=== PATIENT | male | born 1970 | race Caucasian/White ===

== ENCOUNTER → 2017-05-03 | Outpatient (CLI) | payer OTHER | LOC: EMI 11:15 → MRI 11:15 | DX: M54.16 Radiculopathy, lumbar region (principal); M48.06 Spinal stenosis, lumbar region; M51.27 Other intervertebral disc displacement, lumbosacral region; M48.07 Spinal stenosis, lumbosacral region | CPT/HCPCS: 72148 ==

== ENCOUNTER 2020-12-06 22:09 | Emergency (ER) | payer OTHER ==
[~2020-12-06 22:09] MED LIST: AMLODIPINE BES2.5 MG PO; AMLODIPINE BESY10 MG PO; AMLODIPINE BESYL5 MG PO; ASPIRIN EC81 MG PO; ASPIRIN81 MG PO; ATORVASTATIN CA20 MG PO; ATORVASTATIN CA40 MG PO; ATORVASTATIN CA80 MG PO; BACTROBAN CREAM15 GM TOP; BENTYL 20MG TAB20 MG PO; BRILINTA 90 MG90 MG PO; CLINORIL 150 M150 MG PO; FLEXERIL 10 MG10 MG PO; GABAPENTIN300 MG PO; GLUCOPHAGE 500500 MG PO; HUMALOG 10100 UNITS/ SC; HYDRALAZINE HCL50 MG PO; LANTUS100 UNIT/1 SQ; LISINOPRIL20 MG PO; LOPRESSOR 25 MG25 MG PO; NITROGLYCERIN0.4 MG SL; NORCO 7.5-3251 EACH PO; NOVOLOG MI100 UNIT/1 SC; OMNICEF 300 MG300 MG PO; Voltaren Gel 1 % TOP; ZESTRIL40 MG PO; ZOFRAN ODT 4 MG4 MG SL
[2020-12-06 22:30] LABS: HEMOGLOBIN 16.2 gm/dl (14.0-17.5); RED BLOOD COUNT 5.41 M/UL (4.20-5.50); WHITE BLOOD COUNT 9.9 K/UL (4.5-11.0)
== END 2020-12-07 05:19 | disposition home or self-care (01) ==
LOC: ER1 22:09
PROVIDERS: Emergency Medicine
DX: E86.0 Dehydration (principal); E11.65 Type 2 diabetes mellitus with hyperglycemia; N17.9 Acute kidney failure, unspecified; R42 Dizziness and giddiness; I10 Essential (primary) hypertension
CPT/HCPCS: 70450; 71045; 80048; 80053; 82009; 82550; 82553; 82962; 83605; 83615; 84484; 85025; 93005; 99285

== ENCOUNTER 2021-01-04 22:12 | Observation (INO) | payer OTHER ==
[~2021-01-04] VITALS: Ht 172.7 cm; Wt 83.9 kg
[2021-01-05 00:04] LABS: HEMOGLOBIN 12.7 gm/dl (14.0-17.5); RED BLOOD COUNT 4.28 M/UL (4.20-5.50); WHITE BLOOD COUNT 8.4 K/UL (4.5-11.0)
[2021-01-05 00:24] LABS: BUN/CREATININE RATIO 20 (0-10)
[2021-01-07] MEDS ORDERED: LOPRESSOR 25 MG25 MG PO (12:07)
== END 2021-01-07 14:06 | disposition home or self-care (01) ==
LOC: ER1 22:12 → MED SURG 4 01-05 01:24 → CDU 01-05 01:24 → MED SURG 4 01-05 03:00
PROVIDERS: Physician Assistant; ADMIT Internal Medicine
DX: R07.89 Other chest pain (principal); I25.10 Atherosclerotic heart disease of native coronary artery without angina pectoris; I10 Essential (primary) hypertension; E11.9 Type 2 diabetes mellitus without complications; Z98.61 Coronary angioplasty status; Z86.73 Personal history of transient ischemic attack (TIA), and cerebral infarction without residual deficits; Z82.49 Family history of ischemic heart disease and other diseases of the circulatory system; Z72.0 Tobacco use; Z79.4 Long term (current) use of insulin; Z79.82 Long term (current) use of aspirin; Z79.899 Other long term (current) drug therapy; Z20.822 Contact with and (suspected) exposure to COVID-19
CPT/HCPCS: 36415; 71045; 80053; 82550; 82553; 82962; 83874; 83880; 84484; 85025; 85379; 85610; 85730; 93005; 96374; 96375; 96376; 99152; 99153; 99285; C1760; C1769; G0378; J1644; J1885; J2250; J2270; J2405; J3010; J7040; Q9967; U0002

== ENCOUNTER 2021-02-15 18:02 | Observation (INO) | payer OTHER ==
[~2021-02-15] VITALS: Ht 167.6 cm; Wt 78.9 kg
[2021-02-15 18:59] LABS: HEMOGLOBIN 14.3 gm/dl (14.0-17.5); RED BLOOD COUNT 4.79 M/UL (4.20-5.50); WHITE BLOOD COUNT 9.4 K/UL (4.5-11.0)
[2021-02-15 19:05] LABS: BUN/CREATININE RATIO 13 (0-10)
[2021-02-16 05:35] LABS: HEMOGLOBIN 13.1 gm/dl (14.0-17.5); RED BLOOD COUNT 4.4 M/UL (4.20-5.50); WHITE BLOOD COUNT 7.1 K/UL (4.5-11.0)
[2021-02-16 05:51] LABS: BUN/CREATININE RATIO 15 (0-10)
[2021-02-16] MEDS ORDERED: METFORMIN HCL1000 MG PO (12:03)
[2021-02-16] MEDS ORDERED: ZESTRIL/PRINIVI10 MG MT (12:05)
[2021-02-16] MEDS ORDERED: FAMOTIDINE40 MG PO (12:08)
[2021-02-16] MEDS ORDERED: DIFLUCAN200 MG PO (12:09)
[2021-02-16] MEDS ORDERED: JANUVIA 100 MG100 MG PO (12:11)
== END 2021-02-16 17:00 | disposition home or self-care (01) ==
LOC: ER1 18:02 → CDU 19:28 → CCU 19:28
PROVIDERS: Emergency Medicine; ADMIT Internal Medicine
DX: G92 Toxic encephalopathy (principal); T40.2X5A Adverse effect of other opioids, initial encounter; F11.10 Opioid abuse, uncomplicated; I25.10 Atherosclerotic heart disease of native coronary artery without angina pectoris; E11.9 Type 2 diabetes mellitus without complications; I10 Essential (primary) hypertension; Z95.5 Presence of coronary angioplasty implant and graft; Z86.73 Personal history of transient ischemic attack (TIA), and cerebral infarction without residual deficits; Z20.822 Contact with and (suspected) exposure to COVID-19
CPT/HCPCS: 36415; 71045; 80048; 80053; 80307; 81001; 82550; 82553; 83605; 83735; 83874; 84484; 85025; 93005; 96374; 99285; G0378; J2310; J7030; U0002

== ENCOUNTER 2021-09-24 16:57 | Emergency (ER) | payer OTHER ==
[~2021-09-24 16:57] MED LIST changes: +DIFLUCAN200 MG PO; +FAMOTIDINE40 MG PO; +JANUVIA 100 MG100 MG PO; +METFORMIN HCL1000 MG PO; +ZESTRIL/PRINIVI10 MG MT
[2021-09-24] MEDS ORDERED: NORFLEX 100 MG100 MG PO (20:11)
[2021-09-24] MEDS ORDERED: LODINE CAP 300300 MG PO (20:11)
== END 2021-09-24 20:38 | disposition home or self-care (01) ==
LOC: ER1 16:57
DX: S20.211A Contusion of right front wall of thorax, initial encounter (principal); E78.5 Hyperlipidemia, unspecified; E11.9 Type 2 diabetes mellitus without complications; I11.9 Hypertensive heart disease without heart failure; Z86.73 Personal history of transient ischemic attack (TIA), and cerebral infarction without residual deficits; W01.10XA Fall on same level from slipping, tripping and stumbling with subsequent striking against unspecified object, initial encounter
CPT/HCPCS: 71111; 99283

== ENCOUNTER 2021-10-17 21:21 | Observation (INO) | payer OTHER ==
[~2021-10-17] VITALS: Ht 172.7 cm; Wt 81.6 kg
[~2021-10-17 21:21] MED LIST changes: +LODINE CAP 300300 MG PO; +NORFLEX 100 MG100 MG PO
[2021-10-17 22:15] LABS: HEMOGLOBIN 14.3 gm/dl (14.0-17.5); RED BLOOD COUNT 4.73 M/UL (4.20-5.50); WHITE BLOOD COUNT 8.7 K/UL (4.5-11.0)
[2021-10-17 22:17] LABS: BUN/CREATININE RATIO 11 (0-10)
[2021-10-18] MEDS ORDERED: DICLOFENAC SODI75 MG PO (14:00)
[2021-10-18] MEDS ORDERED: ASPIRIN EC81 MG PO (14:01)
[2021-10-18] MEDS ORDERED: AMLODIPINE BESY10 MG PO (14:01)
[2021-10-18] MEDS ORDERED: GABAPENTIN300 MG PO (14:01)
[2021-10-18] MEDS ORDERED: LISINOPRIL10 MG PO (14:02)
[2021-10-18] MEDS ORDERED: METOPROLOL TART25 MG PO (14:02)
[2021-10-18] MEDS ORDERED: FARXIGA5 MG PO (14:02)
[2021-10-18] MEDS ORDERED: JANUVIA100 MG PO (14:04)
[2021-10-18] MEDS ORDERED: VIAGRA100 MG PO (14:04)
[2021-10-18] MEDS ORDERED: ATORVASTATIN CA20 MG PO (14:05)
[2021-10-18] MEDS ORDERED: HYDROCODON-ACE1 EAC2 PO (14:05)
[2021-10-18] MEDS ORDERED: ADMELOG SO100 UNIT/1 SQ (14:06)
[2021-10-18] MEDS ORDERED: FAMOTIDINE40 MG PO (14:06)
[2021-10-19 06:56] LABS: BUN/CREATININE RATIO 13 (0-10)
== END 2021-10-19 13:30 | disposition home or self-care (01) ==
LOC: ER1 21:21 → CDU 22:52 → MED SURG 4 10-18 14:59
PROVIDERS: Family Medicine; Internal Medicine; ADMIT Internal Medicine
DX: R07.89 Other chest pain (principal); I25.10 Atherosclerotic heart disease of native coronary artery without angina pectoris; G89.29 Other chronic pain; M54.9 Dorsalgia, unspecified; I12.9 Hypertensive chronic kidney disease with stage 1 through stage 4 chronic kidney disease, or unspecified chronic kidney disease; E11.22 Type 2 diabetes mellitus with diabetic chronic kidney disease; N18.9 Chronic kidney disease, unspecified; E11.65 Type 2 diabetes mellitus with hyperglycemia; N17.9 Acute kidney failure, unspecified; E78.5 Hyperlipidemia, unspecified; E11.319 Type 2 diabetes mellitus with unspecified diabetic retinopathy without macular edema; Z86.73 Personal history of transient ischemic attack (TIA), and cerebral infarction without residual deficits; Z87.891 Personal history of nicotine dependence; Z72.89 Other problems related to lifestyle; Z82.49 Family history of ischemic heart disease and other diseases of the circulatory system; Z20.822 Contact with and (suspected) exposure to COVID-19; Z79.82 Long term (current) use of aspirin; Z79.4 Long term (current) use of insulin; Z79.899 Other long term (current) drug therapy
CPT/HCPCS: 36415; 71045; 71275; 80048; 80053; 80307; 82009; 82550; 82553; 82962; 83036; 83735; 83874; 83880; 84439; 84443; 84484; 85025; 85379; 85610; 93005; 96374; 96375; 96376; 99285; C9113; G0378; J2270; J7030; Q9967; U0002

== ENCOUNTER → 2021-12-25 | Outpatient (CLI) | payer OTHER ==
[~2021-12-25] MED LIST changes: +ADMELOG SO100 UNIT/1 SQ; +DICLOFENAC SODI75 MG PO; +FARXIGA5 MG PO; +HYDROCODON-ACE1 EAC2 PO; +JANUVIA100 MG PO; +LISINOPRIL10 MG PO; +METOPROLOL TART25 MG PO; +VIAGRA100 MG PO
== END ==
LOC: KOH-I 09:35
DX: M51.36 Other intervertebral disc degeneration, lumbar region (principal); M51.27 Other intervertebral disc displacement, lumbosacral region; M48.07 Spinal stenosis, lumbosacral region; M51.86 Other intervertebral disc disorders, lumbar region
CPT/HCPCS: 72148

== ENCOUNTER 2022-01-01 18:45 | Emergency (ER) | payer OTHER | END 2022-01-01 20:47 | disposition home or self-care (01) | LOC: ER1 18:45 | DX: M25.461 Effusion, right knee (principal); M17.11 Unilateral primary osteoarthritis, right knee; F17.220 Nicotine dependence, chewing tobacco, uncomplicated; E10.9 Type 1 diabetes mellitus without complications; I11.9 Hypertensive heart disease without heart failure; Z95.5 Presence of coronary angioplasty implant and graft; Z79.82 Long term (current) use of aspirin | CPT/HCPCS: 29505; 73562; 99283 ==